=== PATIENT | male | born 1990 | race Caucasian/White ===

== ENCOUNTER 2018-02-17 14:48 | Observation (INO) | payer OTHER ==
[2018-02-17] MEDS ORDERED: Sodium Chloride 0.9% 1,000 ML IV STA ×2 (15:50→18:50)
--- NOTE | 2018-02-17 15:53 | ED PDOC ---
HPI: Abdomen Time Seen by Provider: 02/17/18 15:52 Chief Complaint (Nursing): GI Problem Chief Complaint (Provider): VOMITING History Per: Patient (27 Y/O MALE H/O BIPOLAR DISORDER ON HALDOL/DEPAKOTE HERE FOR EVALUATION OF VOMITING TODAY AT WORK. PATIENT STATES HE WAS WORKING IN [place] WHEN SYMPTOMS BEGAN. DENIES ANY CHEST PAIN. NOTES HE ATE [facility] YESTERDAY. NOTES HE INTERMITTENTLY HAS SYMPTOMS OF VOMITING THAT IMPROVE WITH ZOFRAN. DID NOT TAKE ANY MEDICATIONS AT HOME.) Past Medical History Reviewed: Historical Data, Nursing Documentation, Vital Signs Vital Signs: Last Vital Signs Temp 96.8 F L 02/17/18 15:10 Pulse 71 02/17/18 15:10 Resp 16 02/17/18 15:10 BP 110/74 02/17/18 15:10 Pulse Ox 98 02/17/18 19:24 - Medical History PMH: Bipolar Disorder, Schizophrenia Denies: Chronic Kidney Disease - Family History Family History: States: No Known Family Hx - Home Medications Home Medications: Ambulatory Orders Medication Instructions Recorded Metronidazole [Flagyl] 500 mg PO TID #21 tablet 02/24/17 Ondansetron ODT [Zofran ODT] 1 odt PO BID PRN #12 odt 02/24/17 Ondansetron ODT [Zofran ODT] 4 mg PO Q8 PRN #2 odt 02/17/18 Ranitidine HCl [Zantac 75] 75 mg PO BID #10 tablet 02/17/18 - Allergies Allergies/Adverse Reactions: Allergies Allergy/AdvReac Type Severity Reaction Status Date / Time No Known Allergies Allergy Verified 02/17/18 15:10 Review of Systems ROS Statement: Except As Marked, All Systems Reviewed And Found Negative Physical Exam - Reviewed Nursing Documentation Reviewed: Yes Vital Signs Reviewed: Yes - Physical Exam Appears: Positive for: Well, Non-toxic, No Acute Distress Head Exam: Positive for: ATRAUMATIC, NORMAL INSPECTION, NORMOCEPHALIC Skin: Positive for: Normal Color, Warm, DRY Eye Exam: Positive for: EOMI, Normal appearance, PERRL ENT: Positive for: Normal ENT Inspection Neck: Positive for: Normal, Painless ROM Cardiovascular/Chest: Positive for: Regular Rate, Rhythm Respiratory: Positive for: CNT, Normal Breath Sounds Gastrointestinal/Abdominal: Positive for: Normal Exam, Soft Back: Positive for: Normal Inspection Extremity: Positive for: Normal ROM Neurologic/Psych: Positive for: Alert, Oriented - Laboratory Results Result Diagrams: 02/17/18 16:03 02/17/18 16:03 - ECG O2 Sat by Pulse Oximetry: 98 - Progress ED Course And Treament: zofran 4 mg odt x 1 dose pepcid 20 mg iv x 1 dose zofran 4 mg odt x 1 dose NS 1 LITER WIDE OPEN PATIENT NOTED TO PLACE FINGERS IN MOUTH TO INDUCE VOMITING. STATES HE HAS NAUSEA THAT IS NOT RESOLVING. CT ABD/PELVIS ORDERED ATIVAN 0.MG IV X 1 DOSE NS 1 LITER WIDE OPEN patient admits to use of THC daily. d/w Dr. Woo. Will review CT results. Will give haldol 5 mg iv as well Disposition - Clinical Impression Clinical Impression: Gastritis - Patient ED Disposition Is Patient to be Admitted: No - Disposition Disposition: Routine/Home Disposition Time: 20:00 Condition: FAIR Prescriptions: Ondansetron ODT [Zofran ODT] 4 mg PO Q8 PRN #2 odt PRN Reason: Nausea/Vomiting Ranitidine HCl [Zantac 75] 75 mg PO BID #10 tablet Instructions: Gastritis (DC) Forms: Lang Ma ([place]), [facility] ED School/Work Excuse Patient Signed Over To: Narinder Ramos Handoff Comments: ct pending; re-eval
[2018-02-17 16:07] LABS: BASO % 0.3 % (0.0-2.0); EOS # 0.1 K/uL (0.0-0.7); EOS % 1.1 % (0.0-4.0); HEMOGLOBIN 12.7 g/dL (12.0-18.0); LYMPH # 1.6 K/uL (1.0-4.3); LYMPH % 14.7 % (20.0-40.0); MEAN CELL VOLUME 97.8 fl (80.0-94.0); MEAN CORPUSCULAR HEMOGLOBIN 32.7 pg (27.0-31.0); MEAN CORPUSCULAR HGB CONC 33.4 g/dL (33.0-37.0); MEAN PLATELET VOLUME 10.1 fl (7.2-11.7); MONO # 0.9 K/uL (0.0-0.8); MONO % 8.3 % (0.0-10.0); NEUT # 8.4 K/uL (1.8-7.0); NEUT % 75.6 % (50.0-75.0); RBC 3.9 Mil/uL (4.40-5.90); WHITE BLOOD COUNT 11.1 K/uL (4.8-10.8)
[2018-02-17 16:22] LABS: ALB/GLOB RATIO 1.4 (1.0-2.1); ALBUMIN 3.8 g/dL (3.5-5.0); ALT/SGPT 32 U/L (21-72); AST/SGOT 32 U/L (17-59); BLOOD UREA NITROGEN 9 mg/dl (9-20); CALCIUM 8.7 mg/dL (8.4-10.2); GFR AFRICAN-AMERICAN > 60; GFR NON-AFRICAN AMERICAN > 60
[2018-02-17] MEDS ORDERED: Famotidine 20mg/50ml 20 MG/50 ML BAG IVPB ONE (18:14)
[2018-02-17] MEDS ORDERED: Famotidine 20mg/50ml 20 MG/50 ML BAG IVPB STA (18:21)
[2018-02-17] MEDS ORDERED: Sodium Chloride 0.9% 100 ML ONE (18:59)
[2018-02-17] MEDS ORDERED: Iohexol 300 100 ML IJ ONE (18:59)
--- NOTE | 2018-02-17 20:59 | ED PDOC ---
- Laboratory Results Result Diagrams: 02/17/18 16:03 02/17/18 16:03 - ECG O2 Sat by Pulse Oximetry: 98 - Progress ED Course And Treament: 1999 Signed out to me pending CT results and re-evaluation. 2039 On my initial evaluation, pt. in no distress. Lying down comfortably on stretcher. AOx3. Reports nausea has not improved and pain is still present. Reports pain is throughout the entire abdomen. Abd soft and non-tender. 2137 CT abd/pelvis: 1. No definite CT evidence of appendicitis. 2. Mild colitis versus underdistention. Clinical correlation is needed. 3. Focal gastric wall thickening versus underdistention. Clinical correlation is needed. Cipro IV, flagyl IV ordered. 2150 On re-evaluation, pt. sleeping comfortably. 2300 Pt. wretching and c/o nausea. Reglan 10mg IVPB, benadryl 50mg IVP ordered. EKG: SB at [address]-T wave changes. 0200 Pt. alert and awake. Pt. had more of non-bloody vomiting. Reports no relief in nausea. Case d/w Dr. Truong and due to continued vomiting pt will be placed in 23 hour observation. Case d/w Dr. Diehl and arrangements made for 23 hour observation. Disposition - Clinical Impression Clinical Impression: Intractable vomiting, Colitis - POA Present On Arrival: None - Disposition Disposition: Hospitalized as Observation Patient Disposition Time: 02:00 Condition: STABLE
--- NOTE | 2018-02-17 21:13 | CT ---
EXAM: CT Abdomen and Pelvis With Intravenous Contrast CLINICAL HISTORY: 27 years old, male; Pain and signs and symptoms; Nausea and vomiting; Abdominal pain; Generalized; Additional info: Evaluate for appendicitis TECHNIQUE: Axial computed tomography images of the abdomen and pelvis with intravenous contrast. All CT scans at this facility use one or more dose reduction techniques, viz.: automated exposure control; ma/kV adjustment per patient size (including targeted exams where dose is matched to indication; i.e. head); or iterative reconstruction technique. Coronal and sagittal reformatted images were created and reviewed. CONTRAST: 90 mL of [id number] administered intravenously. COMPARISON: No relevant prior studies available. FINDINGS: Limitations: Motion artifact - mild. Lung bases: No acute findings. ABDOMEN: Liver: Mild fatty infiltration. Gallbladder and bile ducts: No calcified stones. No ductal dilation. Pancreas: No ductal dilation. No mass. Spleen: No splenomegaly. Adrenals: No mass. Kidneys and ureters: No mass. No hydronephrosis. Stomach and bowel: Mild mural thickening versus underdistention of gastric antrum. Segmental areas of mild mural thickening vs underdistention of large bowel. No associated inflammatory stranding. No obstruction. PELVIS: Appendix: Normal caliber. No inflammation. Bladder: Unremarkable. Reproductive: Unremarkable as visualized. ABDOMEN and PELVIS: Intraperitoneal space: Small free fluid within pelvis. No free air. Bones/joints: Probable bone islands. No acute fracture. Soft tissues: Unremarkable. Vasculature: Unremarkable. No aneurysm. Lymph nodes: No pathologically enlarged lymph nodes. IMPRESSION: 1. No definite CT evidence of appendicitis. 2. Mild colitis versus underdistention. Clinical correlation is needed. 3. Focal gastric wall thickening versus underdistention. Clinical correlation is needed. 4. Incidental/non-acute findings are described above.
[2018-02-17] MEDS ORDERED: Ciprofloxacin 400mg/200ml D5W 400 MG/200 ML BAG IVPB STA (21:36)
[2018-02-17] MEDS ORDERED: metroNIDAZOLE 500mg/100ml NS 100 ML IVPB STA (21:36)
[2018-02-17 21:45] LABS: BARBITURATES, UR NEGATIVE (NEGATIVE); BENZODIAZEPINES, UR NEGATIVE (NEGATIVE); OPIATES, UR NEGATIVE (NEGATIVE); PHENCYCLIDINE, UR NEGATIVE (NEGATIVE)
[2018-02-17] MEDS ORDERED: DiphenhydrAMINE 50 mg/ml Inj IVP STA (23:31)
[2018-02-17] MEDS ORDERED: metroNIDAZOLE 500mg/100ml NS 100 ML IVPB ONE (23:32)
[2018-02-18] MEDS ORDERED: Ciprofloxacin 400mg/200ml D5W 400 MG/200 ML BAG IVPB ONE (01:12)
[2018-02-18] MEDS: Dextrose 5%/Lactated Ringer's 1,000 ML IV SCH ×2 (08:35→16:35)
[2018-02-18] MEDS: Ciprofloxacin 400mg/200ml D5W 400 MG/200 ML BAG IVPB SCH ×2 (10:29→20:35)
[2018-02-18] MEDS: metroNIDAZOLE 500mg/100ml NS 100 ML IVPB SCH ×2 (10:29→16:35)
--- NOTE | 2018-02-18 15:21 | CARD ---
APPROVED REPORT EKG Measurement Heart [id number] <Conclusion> Sinus bradycardia Cannot rule out Anterior infarct, age undetermined Abnormal ECG
--- NOTE | 2018-02-18 15:28 | CARD ---
APPROVED REPORT EKG Measurement Heart [id number] <Conclusion> Sinus bradycardia Otherwise normal ECG
[2018-02-18 16:06] VITALS: O2SAT 97
--- NOTE | 2018-02-18 23:27 | CP.PCM.HP ---
History of Present Illness - History of Present Illness History of Present Illness: This is a 27 y/o male admitted for reevaluiation of sz lisair Past Patient History - Past Medical History & Family History Past Medical History?: Yes - Past Social History Smoking Status: Current Some Days Smoker - CARDIAC Hx Cardiac Disorders: No - PULMONARY Hx Respiratory Disorders: No - NEUROLOGICAL Hx Neurological Disorder: No - HEENT Hx HEENT Problems: No - RENAL Hx Chronic Kidney Disease: No - ENDOCRINE/METABOLIC Hx Endocrine Disorders: No - HEMATOLOGICAL/ONCOLOGICAL Hx Blood Disorders: No Hx AIDS: No Hx Human Immunodeficiency Virus (HIV): No - INTEGUMENTARY Hx Dermatological Problems: No - MUSCULOSKELETAL/RHEUMATOLOGICAL Hx Musculoskeletal Disorders: No Hx Falls: No - GASTROINTESTINAL Hx Gastrointestinal Disorders: No - GENITOURINARY/GYNECOLOGICAL Hx Genitourinary Disorders: No - PSYCHIATRIC Hx Psychophysiologic Disorder: Yes (schizophrenia, bipolar) Hx Anxiety: Yes Hx Bipolar Disorder: Yes Hx Schizophrenia: Yes Hx Substance Use: No - SURGICAL HISTORY Hx Surgeries: No - ANESTHESIA Hx Anesthesia: No Hx Anesthesia Reactions: No Hx Malignant Hyperthermia: No Has any member of the family had a problem w/ anesthesia?: No Meds Home Medications: Home Medication List Medication Instructions Recorded Confirmed Type Ondansetron ODT [Zofran ODT] 4 mg PO Q8 PRN #2 odt 02/17/18 Rx Ranitidine HCl [Zantac 75] 75 mg PO BID #10 tablet 02/17/18 Rx Allergies/Adverse Reactions: Allergies Allergy/AdvReac Type Severity Reaction Status Date / Time No Known Allergies Allergy Verified 02/17/18 15:10 Results - Vital Signs Recent Vital Signs: Last Vital Signs Temp 99 F 02/18/18 16:05 Pulse 61 02/18/18 16:05 Resp 20 02/18/18 16:05 BP 110/70 02/18/18 16:05 Pulse Ox 97 02/18/18 16:05 - Labs Result Diagrams: 02/17/18 16:03 02/17/18 16:03
[2018-02-19 00:33] VITALS: RESP 19
[2018-02-19] MEDS: Dextrose 5%/Lactated Ringer's 1,000 ML IV SCH (00:59)
[2018-02-19] MEDS: metroNIDAZOLE 500mg/100ml NS 100 ML IVPB SCH ×2 (01:12→08:02)
[2018-02-19] MEDS: Ciprofloxacin 400mg/200ml D5W 400 MG/200 ML BAG IVPB SCH (08:03)
[2018-02-19 08:07] VITALS: BP 99/60; PULSE 54; TEMP 98.3
== END 2018-02-19 10:22 | disposition home or self-care (01) ==
LOC: H.ER 14:48 → H.ERHOLD 02-18 02:11 → H.MEDSURG1 02-18 04:46
PROVIDERS: ADMIT Family Medicine; ATTEND Family Medicine
DX: R11.2 Nausea with vomiting, unspecified (principal); F31.9 Bipolar disorder, unspecified; F20.9 Schizophrenia, unspecified; F17.200 Nicotine dependence, unspecified, uncomplicated; K52.9 Noninfective gastroenteritis and colitis, unspecified
CPT/HCPCS: 74177; 80053; 80164; 80324; 80345; 80346; 80349; 80353; 80358; 80361; 83690; 83735; 83992; 85025; 93005; 96365; 96366; 96368; 96372; 96375; 96376; 99285; C9113; G0378; J0744; J1200; J1630; J2060; J2765; J7030; J7120; Q9967